=== PATIENT | female | born 1960 | race Caucasian/White ===

== ENCOUNTER 2019-06-19 19:12 | Emergency (ER) | payer OTHER ==
[~2019-06-19] VITALS: Ht 160 cm; Wt 52.7 kg
[~2019-06-19 19:12] MED LIST: ADVIL PM CAPLET1 TAB PO; BIOTIN5 MG PO; HYDROCODONE-APA1 TAB PO; LUNESTA2 M1; MULTIPLE VITAMI1 TA1 PO; PREDNISONE10 MG PO
[2019-06-19 19:15] VITALS: Ht 160 cm; Wt 52.7 kg
[2019-06-19] MEDS ORDERED: ABILIFY10 MG PO (19:17)
[2019-06-19] MEDS ORDERED: NORVASC5 MG PO (19:17)
[2019-06-19] MEDS ORDERED: ULTRAM50 MG PO (19:17)
[2019-06-19] MEDS ORDERED: VOLTAREN75 MG PO (20:20)
[2019-06-19 21:03] VITALS: BP 130/77
== END 2019-06-19 21:03 | disposition home or self-care (01) ==
LOC: D.ER 19:12
DX: S89.92XA Unspecified injury of left lower leg, initial encounter (principal); W01.0XXA Fall on same level from slipping, tripping and stumbling without subsequent striking against object, initial encounter; Y93.89 Activity, other specified; Y92.89 Other specified places as the place of occurrence of the external cause

== ENCOUNTER 2020-03-20 19:00 | Outpatient (CLI) | payer OTHER ==
[2019-06-19 19:15] VITALS: BMI 20.5
[~2020-03-20 19:00] MED LIST changes: +ABILIFY10 MG PO; +NORVASC5 MG PO; +ULTRAM50 MG PO; +VOLTAREN75 MG PO
== END 2020-03-20 23:59 | disposition home or self-care (01) ==
LOC: D.MAMMO 19:00
PROVIDERS: ATTEND Emergency Medicine
DX: Z12.31 Encounter for screening mammogram for malignant neoplasm of breast (principal)